=== PATIENT | female | born 1995 | race Caucasian/White ===

== ENCOUNTER → 2017-07-17 | Outpatient (CLI) | payer BC, OTHER ==
[~2017-07-17] MED LIST: BCPILLS PO; CLR10 PO; CPR500 PO
== END | disposition home or self-care (01) ==
LOC: C.PAPS 14:30
PROVIDERS: ATTEND Physician Assistant
DX: Z01.419 Encounter for gynecological examination (general) (routine) without abnormal findings (principal)